=== PATIENT | female | born 1945 | race Caucasian/White ===

== ENCOUNTER 2016-10-20 02:17 | Inpatient (IN) | payer MEDICARE, MEDICAID ==
[2016-10-20] MEDS ORDERED: BACLOFEN10 M1 PO (03:18)
[2016-10-20] MEDS ORDERED: ASPIRIN325 M3 PO (03:19)
[2016-10-20] MEDS ORDERED: SINEMET 25-1001 EAC1 PO (03:20)
[2016-10-20] MEDS ORDERED: BIOTIN10 M1 PO (03:20)
[2016-10-20] MEDS ORDERED: KEPPRA500 M3 PO (03:23)
[2016-10-20] MEDS ORDERED: NEURONTIN100 M1 PO (03:23)
[2016-10-20] MEDS ORDERED: FLONASE ALLERG9.9 ML (03:23)
[2016-10-20] MEDS ORDERED: PRINIVIL10 M1 PO (03:24)
[2016-10-20] MEDS ORDERED: SYNTHROID50 MC1 PO (03:24)
[2016-10-20] MEDS ORDERED: OXYCONTIN40 M2 PO (03:25)
[2016-10-20] MEDS ORDERED: POTASSIUM CHLO10 ME2 PO (03:25)
[2016-10-20] MEDS ORDERED: SENNA8.6 M2 PO (03:26)
[2016-10-20] MEDS ORDERED: REQUIP0.25 M1 PO (03:26)
[2016-10-20] MEDS ORDERED: VITAMIN B-12250 MC2 PO (03:28)
[2016-10-20] MEDS ORDERED: THERMAZENE50 GM TOP (03:28)
[2016-10-20] MEDS ORDERED: VITAMIN D32000 UNI2 PO (03:29)
[2016-10-20] MEDS ORDERED: ORAZINC220 M1 PO (03:30)
[2016-10-20 05:09] LABS: HCT-HEMATOCRIT 29.4 % (34.0-49.0); HGB-HEMOGLOBIN 8.5 gm/dl (12.0-15.5); MCH (MEAN CORPUSCULAR HGB) 31.6 pg (28.0-32.0); MCV (MEAN CELL VOLUME) 109.3 fl (82.0-96.0); MEAN PLATELET VOLUME 12.8 cmc (9.4-12.4); NEUTROPHIL-AUTOMATED 4.4 tho/cmm (1.6-8.0); PLATELET COUNT 125 tho/cmm (150-450); RED BLOOD COUNT 2.69 mil/cmm (4.00-5.20); RED CELL DISTRIBUTION WIDTH 16.9 % (12.4-16.4); WHITE BLOOD COUNT 7.8 tho/cmm (4.0-10.0)
[2016-10-20 05:11] LABS: INR 2.8 INR (0.9-1.1); PROTHROMBIN TIME 33.8 SECONDS (9.0-13.6)
[2016-10-20 05:19] LABS: ABG CO2 ARTERIAL 12 mmol/L (21-27); ARTERIAL BLD GAS O2 SATURATION 99 % (95-98); ARTERIAL BLOOD GAS PCO2 42 mmHg (32-45); ARTERIAL PO2 413 mmHg (70-100); BICARBONATE 11 mmol/L (21-28); BLOOD GAS BASE EXCESS -18 mM/L (-/+3); PH 7.05 Units (7.35-7.45)
[2016-10-20 05:21] LABS: MCHC MEAN CORPUSCULAR HGB CONC 28.9 % (32.0-36.0)
[2016-10-20 05:30] LABS: ALB/GLOB RATIO 0.5 (0.8-2.0); ALBUMIN 1.8 g/dl (3.5-5.0); ALKALINE PHOSPHATASE 154 U/L (33-138); ALT/SGPT 24 U/L (12-78); AMYLASE 101 U/L (20-90); AST/SGOT 535 U/L (10-40); BILIRUBIN,TOTAL 0.6 mg/dl (0-1.5); BLOOD UREA NITROGEN 63 mg/dl (6-24); CALCIUM 10.7 mg/dl (8.5-10.5); CARBON DIOXIDE-VENOUS 18 mmol/L (22-32); CHLORIDE 117 mmol/l (96-110); CREATININE 3.99 mg/dl (0.50-1.10); LIPASE 141 U/L (73-393); MAGNESIUM 2.1 mg/dl (1.3-2.6); PHOSPHOROUS 6.9 mg/dl (2.5-4.9); SODIUM 151 mmol/L (135-145); eGFR VALUE FOR BLACK 12 mL/Min
[2016-10-20 05:40] LABS: ANION GAP 23 mmol/L (0-20); GLUCOSE 16 mg/dL (70-110); POTASSIUM 6.5 mmol/L (3.7-5.1)
[2016-10-20 05:54] LABS: IRON 84 ug/dl (37-170); IRON BINDING CAPACITY 128 ug/dl (250-450)
[2016-10-20 06:25] LABS: ABG CO2 ARTERIAL 15 mmol/L (21-27); ARTERIAL BLD GAS O2 SATURATION 99 % (95-98); ARTERIAL BLOOD GAS PCO2 40 mmHg (32-45); ARTERIAL PO2 428 mmHg (70-100); BICARBONATE 14 mmol/L (21-28); BLOOD GAS BASE EXCESS -13 mM/L (-/+3)
[2016-10-20 06:27] LABS: PH 7.17 Units (7.35-7.45)
[2016-10-20 07:11] LABS: ABG CO2 ARTERIAL 16 mmol/L (21-27); ARTERIAL BLD GAS O2 SATURATION 99 % (95-98); ARTERIAL BLOOD GAS PCO2 38 mmHg (32-45); ARTERIAL PO2 259 mmHg (70-100); BICARBONATE 14 mmol/L (21-28); BLOOD GAS BASE EXCESS -12 mM/L (-/+3); PH 7.21 Units (7.35-7.45)
[2016-10-20 07:21] LABS: BASO % 0.3 % (0-2); EOS % 0.5 % (0-7); HGB-HEMOGLOBIN 6.7 gm/dl (12.0-15.5); IMMATURE GRANULOCYTES ABSOLUTE 0.17 tho/cmm (0-0.03); IMMATURE GRANULOCYTES PERCENT 1.9 % (0-0.3); LYMPH % 9.5 % (20-45); LYMPH ABSOLUTE COUNT 0.8 tho/cmm (0.8-4.5); MCH (MEAN CORPUSCULAR HGB) 32.2 pg (28.0-32.0); MCV (MEAN CELL VOLUME) 107.2 fl (82.0-96.0); MEAN PLATELET VOLUME 11.5 cmc (9.4-12.4); MONO % 2.4 % (0-12); MONOCYTE ABSOLUTE COUNT 0.2 tho/cmm (0.0-1.2); NEUTROPHIL ABSOLUTE COUNT 7.6 tho/cmm (1.6-8.0); NEUTROPHIL-AUTOMATED 7.6 tho/cmm (1.6-8.0); NEUTROPHILS % 85.4 % (40-80); PLATELET COUNT 99 tho/cmm (150-450); RED BLOOD COUNT 2.08 mil/cmm (4.00-5.20); RED CELL DISTRIBUTION WIDTH 16.8 % (12.4-16.4); WHITE BLOOD COUNT 8.9 tho/cmm (4.0-10.0)
[2016-10-20 07:22] LABS: HGB-HEMOGLOBIN 6.7 gm/dl (12.0-15.5); MCH (MEAN CORPUSCULAR HGB) 32.4 pg (28.0-32.0); MCHC MEAN CORPUSCULAR HGB CONC 30.2 % (32.0-36.0); MCV (MEAN CELL VOLUME) 107.2 fl (82.0-96.0); MEAN PLATELET VOLUME 12.2 cmc (9.4-12.4); NEUTROPHIL-AUTOMATED 7.6 tho/cmm (1.6-8.0); PLATELET COUNT 99 tho/cmm (150-450); RED BLOOD COUNT 2.07 mil/cmm (4.00-5.20); RED CELL DISTRIBUTION WIDTH 16.8 % (12.4-16.4); WHITE BLOOD COUNT 8.9 tho/cmm (4.0-10.0)
[2016-10-20 07:24] LABS: HCT-HEMATOCRIT 22.3 % (34.0-49.0)
[2016-10-20 07:25] LABS: HCT-HEMATOCRIT 22.2 % (34.0-49.0)
[2016-10-20 07:32] LABS: BLOOD UREA NITROGEN 59 mg/dl (6-24); CALCIUM 10.2 mg/dl (8.5-10.5); CARBON DIOXIDE-VENOUS 16 mmol/L (22-32); CHLORIDE 120 mmol/l (96-110); CREATININE 3.85 mg/dl (0.50-1.10); MAGNESIUM 1.7 mg/dl (1.3-2.6); SODIUM 157 mmol/L (135-145); eGFR VALUE FOR BLACK 13 mL/Min
[2016-10-20 07:33] LABS: ANION GAP 26 mmol/L (0-20); GLUCOSE 195 mg/dL (70-110); POTASSIUM 4.8 mmol/L (3.7-5.1)
[2016-10-20 07:39] LABS: INR 3.8 INR (0.9-1.1); PARTIAL THROMBOPLASTIN TIME 68 SECONDS (22-38); PROTHROMBIN TIME 46.1 SECONDS (9.0-13.6)
[2016-10-20 07:55] LABS: BAND % 9 % (0-20); BAND ABSOLUTE COUNT 0.7 tho/cmm (0-2.0)
[2016-10-20 08:00] LABS: ABG CO2 ARTERIAL 12 mmol/L (21-27); ARTERIAL BLD GAS O2 SATURATION 98 % (95-98); ARTERIAL BLOOD GAS PCO2 31 mmHg (32-45); BICARBONATE 11 mmol/L (21-28); BLOOD GAS BASE EXCESS -16 mM/L (-/+3)
[2016-10-20 08:02] LABS: ARTERIAL PO2 147 mmHg (70-100)
[2016-10-20 08:02] LABS: FIBRINOGEN <35 mg/dl (200-400)
[2016-10-20 08:04] LABS: PH 7.16 Units (7.35-7.45)
[2016-10-20 08:18] LABS: ANTI THROMBIN III 34 % (80-120)
[2016-10-20 08:46] LABS: BAND % 20 % (0-20); BAND ABSOLUTE COUNT 1.8 tho/cmm (0-2.0)
[2016-10-20 09:01] LABS: D-DIMER 4743 ng/mlFEU (<500)
[2016-10-20 09:42] LABS: ABG CO2 ARTERIAL 11 mmol/L (21-27); ARTERIAL BLD GAS O2 SATURATION 98 % (95-98); ARTERIAL BLOOD GAS PCO2 28 mmHg (32-45); ARTERIAL PO2 153 mmHg (70-100); BICARBONATE 10 mmol/L (21-28); BLOOD GAS BASE EXCESS -16 mM/L (-/+3)
[2016-10-20 10:24] LABS: ARTERIAL BLD GAS O2 SATURATION 99 % (95-98); ARTERIAL BLOOD GAS PCO2 26 mmHg (32-45); BICARBONATE 9 mmol/L (21-28); BLOOD GAS BASE EXCESS -18 mM/L (-/+3)
[2016-10-20 10:26] LABS: ABG CO2 ARTERIAL 10 mmol/L (21-27); ARTERIAL PO2 183 mmHg (70-100)
[2016-10-20 10:27] LABS: PH 7.18 Units (7.35-7.45)
[2016-10-20 12:51] LABS: HCT-HEMATOCRIT 24.5 % (34.0-49.0); HGB-HEMOGLOBIN 7.3 gm/dl (12.0-15.5); MCH (MEAN CORPUSCULAR HGB) 31.7 pg (28.0-32.0); MCHC MEAN CORPUSCULAR HGB CONC 29.8 % (32.0-36.0); MCV (MEAN CELL VOLUME) 106.5 fl (82.0-96.0); MEAN PLATELET VOLUME 12.4 cmc (9.4-12.4); NEUTROPHIL-AUTOMATED 9.6 tho/cmm (1.6-8.0); PLATELET COUNT 100 tho/cmm (150-450); WHITE BLOOD COUNT 10.6 tho/cmm (4.0-10.0)
[2016-10-20 13:06] LABS: ACETAMINOPHEN LEVEL 4.6 ug/ml (10-30); PHOSPHOROUS 6.4 mg/dl (2.5-4.9)
[2016-10-20 13:11] LABS: ALB/GLOB RATIO 0.6 (0.8-2.0); ALBUMIN 1.7 g/dl (3.5-5.0); ALKALINE PHOSPHATASE 127 U/L (33-138); BILIRUBIN,DIRECT 0.4 mg/dl (0.0-0.3); BILIRUBIN,INDIRECT 0.3 mg/dL (0.0-1.0); BILIRUBIN,TOTAL 0.7 mg/dl (0-1.5); BLOOD UREA NITROGEN 54 mg/dl (6-24); CALCIUM 9.4 mg/dl (8.5-10.5); CHLORIDE 114 mmol/l (96-110); CREATININE 3.65 mg/dl (0.50-1.10); MAGNESIUM 1.7 mg/dl (1.3-2.6); SODIUM 154 mmol/L (135-145); eGFR VALUE FOR BLACK 14 mL/Min
[2016-10-20 13:20] LABS: ALT/SGPT 59 U/L (12-78); ANION GAP 37 mmol/L (0-20); AST/SGOT 1504 U/L (10-40); CARBON DIOXIDE-VENOUS 8 mmol/L (22-32); GLUCOSE 89 mg/dL (70-110)
[2016-10-20 14:14] LABS: INR 3.6 INR (0.9-1.1); PROTHROMBIN TIME 43.3 SECONDS (9.0-13.6)
[2016-10-20 14:14] LABS: ARTERIAL BLD GAS O2 SATURATION 99 % (95-98); ARTERIAL BLOOD GAS PCO2 22 mmHg (32-45); ARTERIAL PO2 412 mmHg (70-100); BICARBONATE 6 mmol/L (21-28); BLOOD GAS BASE EXCESS -23 mM/L (-/+3)
[2016-10-20 14:15] LABS: PARTIAL THROMBOPLASTIN TIME 53 SECONDS (22-38)
[2016-10-20 14:16] LABS: PH 7.06 Units (7.35-7.45)
[2016-10-20 14:17] LABS: BASO % 0.1 % (0-2); EOS % 0.1 % (0-7); HCT-HEMATOCRIT 26.6 % (34.0-49.0); LYMPH % 6.4 % (20-45); LYMPH ABSOLUTE COUNT 0.7 tho/cmm (0.8-4.5); MCH (MEAN CORPUSCULAR HGB) 31.4 pg (28.0-32.0); MCHC MEAN CORPUSCULAR HGB CONC 30.1 % (32.0-36.0); MCV (MEAN CELL VOLUME) 104.3 fl (82.0-96.0); MEAN PLATELET VOLUME 12.9 cmc (9.4-12.4); MONO % 2.1 % (0-12); MONOCYTE ABSOLUTE COUNT 0.2 tho/cmm (0.0-1.2); NEUTROPHIL ABSOLUTE COUNT 10.3 tho/cmm (1.6-8.0); NEUTROPHIL-AUTOMATED 10.3 tho/cmm (1.6-8.0); NEUTROPHILS % 90.6 % (40-80); PLATELET COUNT 100 tho/cmm (150-450); RED BLOOD COUNT 2.55 mil/cmm (4.00-5.20); RED CELL DISTRIBUTION WIDTH 20.4 % (12.4-16.4); WHITE BLOOD COUNT 11.3 tho/cmm (4.0-10.0)
[2016-10-20 14:17] LABS: ABG CO2 ARTERIAL 7 mmol/L (21-27)
[2016-10-20 14:25] LABS: BAND % 46 % (0-20); BAND ABSOLUTE COUNT 4.9 tho/cmm (0-2.0)
[2016-10-20 14:30] LABS: ANTI THROMBIN III 35 % (80-120)
[2016-10-20 14:52] LABS: D-DIMER >128000 ng/mlFEU (<500); FIBRINOGEN 27 mg/dl (200-400)
--- NOTE | 2016-10-20 18:30 | NUR ---
0630 RT. FEMORAL ART. LINE INSERTED BY ANITA SPICERES RECIEVED. 1L OF NS STARTED ORDERED. INCONTINENT OFBLOODY LIQUID AND BROWN SOFT BM. BP LABILE, WHEN BP LOW FEET BECOME PURPLE. OTHERWISE MOTTLED BELOW MID GALVAN BILATERAL RT. > LEFT. BEAR HUGGER APPLIED FOR TEMP < 36. LABS DRAWN. 0730 DR. MICHAEL NOTIFIED OF ABG RESULTS AND ORDERS RECIEVED. 1 AMP. NAHCO3 IVP GIVEN. DIC PANEL DRAWN ORDERED. 0800 BP MORE STABLE, LABS DRAWN. ABG RESULTS GIVEN TO DR. MICHAEL. ORDER FOR BICARB DRIP RECIEVED. 0845 D5W AND NAHCO3 DRIP STARTED. BP REMAINS LABILE, TITRATING LEVOPHED. 0900 DIC PANEL RETURNED WITH CRITICAL RESULTS. GIVEN TO DR. MICHAEL, ORDERS RECIEVED. 1000 2 UNITS OF FFP STARTED ORDERED. BP INCREASES WITH FFP INFUSING. 1100 TRANSFUSION OF PRBC STARTED. FAMILY INTO VISIT. 1300 LABS DRAWN, REMAINS UNSTABLE. CONDITION UPDATE GIVEN TO FAMILY AND PHYSICIANS. EEG AND ABD US TO BE DONE. 1400 BP MORE LABILE, ABG'S DRAWN. L. ACID 22, RESULT GIVEN TO MILAN BENNETT FOR PULMONARY. 1430 GLUCOSE 65- GIVEN 1/2 AMP D50. ABG RESUYLTS GIVEN TO DR. LABOY, ORDERS RECIEVED. PRBC INFUSED. 1500 FAMILY DISCUSSING GOING COMFORT CARES, AFTER DR. LABOY SPEAKS WITH THEM ABOUT PROGNOSIS. 1610 IV DRIP DISCONTINUED AFTER FAMILY ELECTS TO WITHDRAW TREATMENT AND KEEP COMFORTABLE. 1625 EXTUBATED AFTER MORPHINE GIVEN FOR COMFORT. FAMILY @ BEDSIDE. NO RESP. EFFORT. 1635 NO RESPIRATORY EFFORT, NO PULSE, PUPILS FIXED AND DILATED. FAMILY 2 BEDSIDE WITH PASTORAL CARE, TEARFUL. 1820 BODY RELEASED TO LAUREN CORNELIUS,AND [facility] FOR [facility].
== END 2016-10-20 16:35 | disposition expired | DRG 871 ==
LOC: CCU 02:17
PROVIDERS: Internal Medicine; Internal Medicine Critical Care Medicine; Internal Medicine Pulmonary Disease; Registered Nurse; ADMIT Hospitalist
PROC: 04HK33Z Insertion of Infusion Device into Right Femoral Artery, Percutaneous Approach (ICD-10-PCS; principal; 2016-10-20)
PROC: 5A1935Z Respiratory Ventilation, Less than 24 Consecutive Hours (ICD-10-PCS; 2016-10-20)
PROC: 02HV33Z Insertion of Infusion Device into Superior Vena Cava, Percutaneous Approach (ICD-10-PCS; 2016-10-20)
PROC: 0BH17EZ Insertion of Endotracheal Airway into Trachea, Via Natural or Artificial Opening (ICD-10-PCS; 2016-10-20)
DX: A41.9 Sepsis, unspecified organism (principal); J96.01 Acute respiratory failure with hypoxia; R65.21 Severe sepsis with septic shock; N17.9 Acute kidney failure, unspecified; G93.40 Encephalopathy, unspecified; L89.153 Pressure ulcer of sacral region, stage 3; E87.0 Hyperosmolality and hypernatremia; A04.7 Enterocolitis due to Clostridium difficile; L89.623 Pressure ulcer of left heel, stage 3; L89.893 Pressure ulcer of other site, stage 3; E87.2 Acidosis; D62 Acute posthemorrhagic anemia; Z51.5 Encounter for palliative care; G20 Parkinson's disease; E87.5 Hyperkalemia; E53.8 Deficiency of other specified B group vitamins; I10 Essential (primary) hypertension; G40.909 Epilepsy, unspecified, not intractable, without status epilepticus; E03.9 Hypothyroidism, unspecified; E83.39 Other disorders of phosphorus metabolism; K75.9 Inflammatory liver disease, unspecified; M06.9 Rheumatoid arthritis, unspecified; Z66 Do not resuscitate
CPT/HCPCS: C1751; C9113; G0480; J1720; J1953; J2543; J2704; J3260; J3370; J3430; J7030; J7040; P9016; P9017